=== PATIENT | female | born 1955 | race Caucasian/White ===

== ENCOUNTER → 2017-11-07 09:05 | Outpatient (CLI) | payer OTHER, MEDICAID, SELFPAY ==
--- NOTE | 2017-11-07 | DI.MG.S_ITS ---
BILATERAL DIGITAL SCREENING MAMMOGRAM 3D/2D WITH CAD: 11/07/2017 CLINICAL: Routine screening. Comparison is made to exams dated: 11/27/2015 mammogram, 10/09/2014 mammogram, and 11/22/2012 mammogram - [facility]. The tissue of both breasts is heterogeneously dense. This may lower the sensitivity of mammography. Current study was also evaluated with a Computer Aided Detection (CAD) system. No significant masses, calcifications, or other findings are seen in either breast. There has been no significant interval change. IMPRESSION: NEGATIVE There is no mammographic evidence of malignancy. A 1 year screening mammogram is recommended. This exam was interpreted at Station ID: [id number]. NOTE: For mammograms, a report in lay terms will be sent to the patient. Approximately 15% of breast malignancies will not be visualized mammographically. In the management of a palpable breast mass, a negative mammogram must not discourage biopsy of a clinically suspicious lesion. Electronically Signed By: Sharita dos santos/winston:11/07/2017 14:16:33 letter sent: Normal Exam ACR BI-RADS Category 1: Negative 3341F
== END ==
PROVIDERS: Visit Provider Student in an Organized Health Care Education/Training Program
DX: Z12.31 Encounter for screening mammogram for malignant neoplasm of breast (principal); M85.851 Other specified disorders of bone density and structure, right thigh
CPT/HCPCS: 77063; 77067; 77080

== ENCOUNTER 2018-10-09 07:22 | Day surgery (SDC) | payer OTHER, MEDICAID, SELFPAY ==
--- NOTE | 2018-10-09 | PATH_ITS ---
[facility] Accession Number: [id number] . 01 Material submitted: . PART A: colon - ASCENDING COLON BIOPSY PART B: colon - COLON BIOPSY AT 85 CM X3 . 02 Diagnosis: A. Ascending Colon, Biopsy: Tubular adenoma. . B. Colon, 85 cm x3, Biopsies: Tubular adenoma in five of multiple fragments. MRV/10/10/2018 . 02 Electronically signed: . Yanni Humphreys MD, Pathologist NPI- [id number] . 01 Gross description: . Part A: ASCENDING COLON BIOPSY: Received in formalin is 1 fragment(s) of roe, soft tissue measuring 0.6 x 0.2 x 0.2 cm which is entirely submitted and submitted entirely in 1 cassette(s) Part B: COLON BIOPSY AT 85 CM X3: Received in formalin are multiple fragment(s) of roe, soft tissue measuring 0.1 x 0.1 x 0.1 cm to 0.3 x 0.2 x 0.2 cm which is entirely submitted and submitted entirely in 1 cassette(s) /DMC /DMC . 02 Pathologist provided ICD-10: D12.2, D12.6 . 02 CPT . 801882, 748701 Performed at: 01 [facility] [address], [place], [place] [id number] MD Evans Reaves MD Phone: [phone] Performed at: 02 [facility] [address] [place], [place] [id number] MD Yanni Humphreys MD Phone: [phone]
[2018-10-09 07:50] VITALS: BMI 25.5
[2018-10-09 07:54] VITALS: BP 115/72; PULSE 63; RESP 15; TEMP 36.4; O2SAT 96
[2018-10-09] MEDS: SODIUM CHLORIDE 0.9% 1,000 ML 125 ML IV (08:07)
--- NOTE | 2018-10-09 09:01 | PM.PREOP ---
Pre-operative Note Interval Note History & Physical reviewed/Exam performed by Physician: Yes Changes to H&P: No ASA Class (for procedural sedation): I
[2018-10-09] MEDS: fentaNYL 250 MCG/5 ML INJ IV (09:22)
[2018-10-09] MEDS: MIDAZOLAM 5 MG/5 ML VIAL IV (09:23)
[2018-10-09 09:45] VITALS: BP 104/62; PULSE 58; RESP 12; TEMP 36.2; O2SAT 96
[2018-10-09 09:50] VITALS: BP 95/60; PULSE 58; RESP 12; O2SAT 96
--- NOTE | 2018-10-09 09:50 | P.OP.ENDO_ITS ---
Operative Date/Time/Diagnoses Date of procedure: 10/09/18 Time of procedure: 09:50 Pre-op diagnosis: Screening examination. This is her 1st colonoscopy. She is 62. Post-op diagnosis: same (Multiple small polyps. Sigmoid diverticulosis. Scarring on old internal hemorrhoids. No active inflammation.) Procedure & Clinicians Study performed: Colonoscopy with cold biopsy Same procedure as scheduled: Yes Indications: Screening Surgeon: Haseeb Méndez Procedure Notes SCOAP/Timeout: Performed Procedure in detail: The patient was placed in the left lateral decubitus position and underwent IV sedation directed by the surgeon consisting of fentanyl and Versed. Digital exam was unremarkable. The scope was inserted and advanced through the rectum into the sigmoid, descending, transverse, and ascending colon. I removed 1 small polyp in the ascending colon. I noted sigmoid diverticulosis. A stiffener had to be inserted and pressure applied in order to reach the ascending colon and cecum. The cecum was reached identified by the ileocecal valve and the appendiceal opening. The scope was gradually brought out. Three additional Polyps were found at 85 cm from the anal verge. These were biopsied and removed. The scope ultimately was retroflexed in the rectum. The appearance was remarkable for scarring on internal hemorrhoids. The hemorrhoids themselves were fairly minor. There was no active inflamma tion.. The scope was removed and the patient tolerated the procedure well. Prep was good. Scope withdrawal time: 10min(excludes biopsy time) Sedation minutes: 57 Findings: diverticulosis (SIGMOID), internal hemorrhoids and polyp Specimen(s): other (POLYPS) Complications: none Recommendations: Colonscopy in 5 years and Other recommendation (Consider Metamucil daily) Follow up: as needed Disposition: PACU
[2018-10-09 09:55] VITALS: BP 93/58; PULSE 53; RESP 10; O2SAT 95
[2018-10-09 10:01] VITALS: BP 106/60; PULSE 65; RESP 19; TEMP 36.1; O2SAT 98
[2018-10-09 10:27] VITALS: BP 106/58; PULSE 50; RESP 16; TEMP 36.6; O2SAT 99
== END 2018-10-09 10:33 | disposition home or self-care (01) ==
PROVIDERS: PCP Student in an Organized Health Care Education/Training Program; Visit Provider Specialist
PROC: 0DJD8ZZ Inspection of Lower Intestinal Tract, Via Natural or Artificial Opening Endoscopic (ICD-10-PCS; CPT 45378; principal; 2018-10-09 08:45)
DX: Z12.11 Encounter for screening for malignant neoplasm of colon (principal); K57.30 Diverticulosis of large intestine without perforation or abscess without bleeding; K64.8 Other hemorrhoids; D12.2 Benign neoplasm of ascending colon; D12.6 Benign neoplasm of colon, unspecified
CPT/HCPCS: 45380; 99152; 99153; J2250; J3010

== ENCOUNTER 2019-03-11 08:57 | Day surgery (SDC) | payer OTHER, MEDICAID, SELFPAY ==
[2019-03-05 07:48] VITALS: BMI 26.7
[2019-03-11] VITALS (11 sets, daily range): BP systolic 104–151; BP diastolic 58–79; PULSE 53–63; RESP 9–95; TEMP 36.1–36.8; O2SAT 13–99; BMI 27.1
[2019-03-11] MEDS: LACTATED RINGERS 1,000 ML 100 ML IV (09:47)
[2019-03-11] MEDS: CEFAZOLIN 2 GM/100 ML FROZ.PIGGY IV (10:40)
--- NOTE | 2019-03-11 10:43 | PM.HP.1 ---
History of Present Illness History of Present Illness Date Patient Seen: 03/11/19 Time Patient Seen: 10:44 Chief complaint: [id number] Narrative: The patient is here for pair of an umbilical hernia. Patient History Medical History Healthy female adult (Chronic) Surgical History H/O section (Resolved) Family & Social History Family History Mother Heart disease Stroke Cancer Father Heart disease Stroke Social History: household members significant other Tobacco & Substance use: Smoking Status Never smoker alcohol intake current Meds Home Medications and Allergies Home Medications Medication Instructions Recorded Confirmed Type acyclovir 200 mg PO TID PRN 03/11/19 03/11/19 History Allergies Allergy/AdvReac Type Severity Reaction Status Date / Time No Known Drug Allergies Allergy Verified 03/11/19 09:29 Review of Systems Review of Systems ROS Unobtainable: All systems reviewed & are unremarkable except as noted in HPI and below Exam Vital Signs (past 8 hours): - 03/11/19 09:45 Temperature 97.4 F L Pulse Rate 61 Respiratory Rate 15 Blood Pressure 126/77 Pulse Oximetry 94 Oxygen Delivery Method Room Air Narrative Exam Narrative: Pleasant cooperative patient no apparent distress. Lungs are clear to auscultation. No rales or rhonchi. Heart regular rate and rhythm no murmur gallop. Abdomen is soft nontender without mass. Has an obvious umbilical hernia. Patient is alert and oriented x3. Assessment & Plan Assessment & Plan narrative: Patient with an umbilical hernia for repair. I have discussed the procedure with her. Risks of bleeding infection recurrence discussed. She understands limitations. She appeared to understand and wished to proceed.
--- NOTE | 2019-03-11 10:45 | PM.PREOP ---
Pre-operative Note Interval Note History & Physical reviewed/Exam performed by Physician: Yes Changes to H&P: No
--- NOTE | 2019-03-11 11:03 | SUR.OPER ---
Supine on padded OR bed, head on pillow, arms secured on padded arm boards at <90 degrees abduction, legs uncrossed, safety belt at thigh, tape over blanket over lower legs.
[2019-03-11] MEDS: BUPIVACAINE 0.5% (PF) VIAL 30 ML INJ (11:18)
--- NOTE | 2019-03-11 11:37 | PM.OP.1 ---
Operative Date/Time/Diagnoses Date of procedure: 03/11/19 Time of procedure: 11:38 Pre-op diagnosis: umbilical hernia Post-op diagnosis: same Procedure & Clinicians Procedure: Primary repair Same procedure as scheduled: Yes Indications: Symptomatic hernia Surgeon: Haseeb Méndez Click Yes if Unassisted: Yes Anesthesia Type: General Operative Notes Findings: Small defect. Patient did not want mesh used in this repair. Closure Type: primary Specimen(s): none sent Prosthetic devices, grafts, tissues, transplants, or devices: None Estimated Blood Loss (mL): 5 Blood products transfused: none Procedure in detail: The patient is placed supine on the operating room table and underwent general LMA anesthesia. She was prepped and draped in the usual fashion. Curvilinear incision was made beneath her umbilicus after local anesthetic was infiltrated. This carried down level of fascia. The hernia sac was entered and contained fat. It was from the sac. The fascial edge was cleared. There was a large amount of fat and it was not able to be reduced so I resected a portion. The remainder was reduced. Fascial edge was cleared. Figure of 8 1. Ethibond sutures were placed in the fascia. This adequately closed the hernia. The umbilicus was tacked down to the fascia with interrupted 3 0 Vicryl. The subcu was closed with interrupted 3 0 Vicryl. The skin was closed with a running 4 0 Vicryl subcuticular stitch and Steri-Strips. Dressing was applied the patient was awakened extubated taken recovery area in good condition. Complications: none Post-operative Condition: stable Disposition: PACU Plan for aftercare: Follow-up in the office
[2019-03-11] MEDS: fentaNYL 100 MCG/2 ML INJ IV (12:16)
[2019-03-11] MEDS: HYDROMORPHONE 2 MG INJ IV (12:17)
--- NOTE | 2019-03-11 12:24 | SUR.PHASEI ---
Medicated for c\o 11/07 pain. Denies nausea. Carley TRAN.
[2019-03-11] MEDS: ONDANSETRON 4 MG/2 ML INJ IV (12:29)
--- NOTE | 2019-03-11 12:32 | SUR.PHASEI ---
Patient c/o feeling dizzy and may get nauseated. Gave zofran.
[2019-03-11] MEDS: HYDROCODONE/ACET 5/325 TABLET 1 TAB PO (13:29)
== END 2019-03-11 14:09 | disposition home or self-care (01) ==
PROVIDERS: Family Provider Student in an Organized Health Care Education/Training Program; PCP Student in an Organized Health Care Education/Training Program; Visit Provider Specialist
PROC: (CPT 49585; principal; 2019-03-11 10:15)
DX: K42.9 Umbilical hernia without obstruction or gangrene (principal)
CPT/HCPCS: 49585; 94762; J0690; J1100; J1170; J2250; J2405; J3010

== ENCOUNTER → 2020-02-22 10:44 | Outpatient (CLI) | payer MEDICARE, OTHER, MEDICAID, SELFPAY ==
--- NOTE | 2020-02-22 | DI.MG.S_ITS ---
BILATERAL DIGITAL SCREENING MAMMOGRAM 3D/2D WITH CAD: 02/22/2020 CLINICAL: Routine screening. Comparison is made to exams dated: 11/07/2017 mammogram, 11/27/2015 mammogram, and 10/09/2014 mammogram - [facility]. The tissue of both breasts is heterogeneously dense. This may lower the sensitivity of mammography. Current study was also evaluated with a Computer Aided Detection (CAD) system. No significant masses, calcifications, or other findings are seen in either breast. There has been no significant interval change. IMPRESSION: NEGATIVE There is no mammographic evidence of malignancy. A 1 year screening mammogram is recommended. This exam was interpreted at Station ID: [id number]. NOTE: For mammograms, a report in lay terms will be sent to the patient. Approximately 15% of breast malignancies will not be visualized mammographically. In the management of a palpable breast mass, a negative mammogram must not discourage biopsy of a clinically suspicious lesion. Electronically Signed By: Gus keane/winston:02/24/2020 08:51:50 letter sent: Normal Exam ACR BI-RADS Category 1: Negative 3341F
== END ==
PROVIDERS: Family Provider Student in an Organized Health Care Education/Training Program; PCP Student in an Organized Health Care Education/Training Program; Referring Provider Student in an Organized Health Care Education/Training Program; Visit Provider Student in an Organized Health Care Education/Training Program
DX: Z12.31 Encounter for screening mammogram for malignant neoplasm of breast (principal)
CPT/HCPCS: 77063; 77067

== ENCOUNTER → 2020-10-08 20:09 | Outpatient (ROUT) | payer MEDICARE, OTHER, MEDICAID, SELFPAY ==
[2020-10-08 20:17] LABS: Add Manual Diff / Slide Review NO; Basophils Absolute Auto 0 /uL (0-100); Basophils Percent Auto 0.5 % (0-2); Eosinophils Absolute Auto 200 /uL (0-450); Eosinophils Percent Auto 2.2 % (2-4); Hematocrit 42.8 % (36-46); Lymphocytes Absolute Auto 3000 /uL (1100-4500); Lymphocytes Percent Auto 30.4 % (25-40); Mean Corpuscular HGB Conc 32.8 % (30-36); Mean Corpuscular Hemoglobin 30.4 PG (26-34); Mean Corpuscular Volume 92.9 fL (80-100); Monocytes Absolute Auto 800 /uL (0-900); Monocytes Percent Auto 7.5 % (3-14); Neutrophils Absolute Auto 5900 /uL (1500-7000); Neutrophils Percent Auto 59.4 % (50-75); Platelet Count 411 X10^3/uL (150-400); Red Blood Cell Count 4.61 X10^6/uL (4.0-5.2); Red Cell Distribution Width 13.3 % (11.6-14.8)
[2020-10-08 20:35] LABS: Alanine Aminotransferase 26 IU/L (<35); Albumin 4.4 g/dL (3.5-5.0); Albumin Globulin Ratio 1.4 (1.0-2.8); Alkaline Phosphatase 104 U/L (38-126); Aspartate Aminotransferase 32 IU/L (14-36); BUN Creatinine Ratio 16.2 (6-22); Bilirubin Total 0.8 mg/dL (0.2-1.3); Blood Urea Nitrogen 12 mg/dL (7-17); Carbon Dioxide 26 mmol/L (22-32); Chloride 103 mmol/L (98-107); Estimated Glomerular Filt Rate > 60.0 mL/min (>60); Globulin 3.1 g/dL (1.7-4.1); Glucose 111 mg/dL (80-110); HEMOLYSIS < 15 (0-50); Lipase 89 U/L (23-300); Potassium 4.5 mmol/L (3.4-5.1); Sodium 137 mmol/L (137-145); Total Protein 7.5 g/dL (6.3-8.2)
[2020-10-08 21:03] LABS: TSH w/ Reflex to FT4 1.33 uIU/mL (0.47-4.68)
== END ==
PROVIDERS: Family Provider Student in an Organized Health Care Education/Training Program; PCP Student in an Organized Health Care Education/Training Program; Visit Provider Student in an Organized Health Care Education/Training Program
DX: R53.83 Other fatigue (principal); R10.9 Unspecified abdominal pain; R51.9 Headache, unspecified; R61 Generalized hyperhidrosis
CPT/HCPCS: 80053; 83690; 84443; 85025

== ENCOUNTER → 2020-10-20 08:49 | Outpatient (CLI) | payer MEDICARE, OTHER, MEDICAID, SELFPAY ==
--- NOTE | 2020-10-20 | DI.CT.S_ITS ---
PROCEDURE: CT ABDOMEN PELVIS W CON INDICATIONS: ABD PAIN TECHNIQUE: After the administration of oral and intravenous contrast, axial sections were acquired from the lung bases to the pubic symphysis. Coronal and sagittal reformats were performed. For radiation dose reduction, the following was used: automated exposure control, adjustment of mA and/or kV according to patient size. COMPARISON:None. FINDINGS: Image quality: Excellent. Lung bases: Unremarkable. Heart: No significant findings. ABDOMEN: Liver: Unremarkable. Gallbladder: Is grossly unremarkable Biliary ducts: Unremarkable. Pancreas: Unremarkable. Spleen: Unremarkable. Adrenal Glands: Unremarkable. Kidneys and Ureters: Unremarkable. Stomach and Bowel: Stomach, small bowel loops, and colon are unremarkable. Normal appendix. Peritoneum: No abnormal intraperitoneal fluid. No free air. Ventral Wall: No hernia. Abdominal Nodes: No retroperitoneal or mesenteric adenopathy by size criteria. Vessels: Aorta and inferior vena cava are normal in size. PELVIS: Pelvic Organs: Unremarkable. Bladder: Unremarkable. Pelvic Nodes: No enlarged lymph nodes. Miscellaneous: No inguinal hernias are seen. Bones: Unremarkable. IMPRESSION: 1. No acute process. 2. Normal appendix. Dictated by: Alber Oconnell M.D. on 10/20/2020 at 10:22 Approved by: Alber Oconnell M.D. on 10/20/2020 at 10:23
== END ==
PROVIDERS: Family Provider Student in an Organized Health Care Education/Training Program; PCP Student in an Organized Health Care Education/Training Program; Referring Provider Student in an Organized Health Care Education/Training Program; Visit Provider Student in an Organized Health Care Education/Training Program
DX: R10.9 Unspecified abdominal pain (principal); R61 Generalized hyperhidrosis
CPT/HCPCS: 74177; Q9967

== ENCOUNTER → 2022-10-12 10:57 | Outpatient (CLI) | payer OTHER, SELFPAY ==
--- NOTE | 2022-10-12 | DI.MG.S_ITS ---
BILATERAL DIGITAL SCREENING MAMMOGRAM 3D/2D WITH CAD: 10/12/2022 CLINICAL: Routine screening. Comparison is made to exams dated: 02/22/2020 mammogram, 11/07/2017 mammogram, and 11/27/2015 mammogram - [facility]. Both breasts are heterogeneously dense, which may obscure small masses (category c / 51-75% glandular tissue). Current study was also evaluated with a Computer Aided Detection (CAD) system. No significant masses, calcifications, or other findings are seen in either breast. There has been no significant interval change. IMPRESSION: NEGATIVE There is no mammographic evidence of malignancy. A 1 year screening mammogram is recommended. Based on the Tyrer Cuzick model (a risk assessment model) the patient's lifetime risk is 7.2% and her 10 year risk is 3.8%. According to the ACR, ACS, and NCCN guidelines, an annual breast MRI exam along with mammogram is recommended if the patient's lifetime risk is 20% or greater. This exam was interpreted at Station ID: [id number]. NOTE: For mammograms, a report in lay terms will be sent to the patient. Approximately 15% of breast malignancies will not be visualized mammographically. In the management of a palpable breast mass, a negative mammogram must not discourage biopsy of a clinically suspicious lesion. Electronically Signed By: Gus keane/winston:10/12/2022 14:25:07 letter sent: Normal Exam ACR BI-RADS Category 1: Negative 3341F
== END ==
PROVIDERS: Family Provider Student in an Organized Health Care Education/Training Program; PCP Family Medicine; Referring Provider Family Medicine; Visit Provider Family Medicine
DX: Z12.31 Encounter for screening mammogram for malignant neoplasm of breast (principal)
CPT/HCPCS: 77063; 77067

== ENCOUNTER → 2023-11-10 11:32 | Outpatient (CLI) | payer OTHER, SELFPAY ==
--- NOTE | 2023-11-10 11:33 | DI.MG.S_ITS ---
BILATERAL DIGITAL SCREENING MAMMOGRAM 3D/2D WITH CAD: 11/10/2023 CLINICAL: Routine screening. Comparison is made to exams dated: 10/12/2022 mammogram, 02/22/2020 mammogram, and 11/07/2017 mammogram - [facility]. Both breasts are heterogeneously dense, which may obscure small masses (category c / 51-75% glandular tissue). Current study was also evaluated with a Computer Aided Detection (CAD) system. No significant masses, calcifications, or other findings are seen in either breast. There has been no significant interval change. IMPRESSION: NEGATIVE There is no mammographic evidence of malignancy. A 1 year screening mammogram is recommended. Based on the Tyrer Cuzick model (a risk assessment model) the patient's lifetime risk is 6.9% and her 10 year risk is 3.8%. According to the ACR, ACS, and NCCN guidelines, an annual breast MRI exam along with mammogram is recommended if the patient's lifetime risk is 20% or greater. This exam was interpreted at Station ID: [id number]. NOTE: For mammograms, a report in lay terms will be sent to the patient. Approximately 15% of breast malignancies will not be visualized mammographically. In the management of a palpable breast mass, a negative mammogram must not discourage biopsy of a clinically suspicious lesion. Electronically Signed By: Gus keane/winston:11/10/2023 12:29:18 letter sent: Normal Exam ACR BI-RADS Category 1: Negative 3341F
== END ==
LOC: MAMMO 11:33
PROVIDERS: Family Provider Student in an Organized Health Care Education/Training Program; PCP Family Medicine; Referring Provider Family Medicine; Visit Provider Family Medicine
DX: Z12.31 Encounter for screening mammogram for malignant neoplasm of breast (principal); R92.333 Mammographic heterogeneous density, bilateral breasts
CPT/HCPCS: 77063; 77067

== ENCOUNTER → 2024-02-07 14:14 | Outpatient (CLI) | payer OTHER, SELFPAY ==
[2024-02-07 16:40] LABS: Alanine Aminotransferase 21 IU/L (<35); Albumin 4.4 g/dL (3.5-5.0); Albumin Globulin Ratio 1.6 (1.0-2.8); Alkaline Phosphatase 87 U/L (38-126); Aspartate Aminotransferase 24 IU/L (14-36); BUN Creatinine Ratio 18.2 (6-22); Bilirubin Total 0.7 mg/dL (0.2-1.3); Blood Urea Nitrogen 16 mg/dL (7-17); Calcium 9.6 mg/dL (8.4-10.2); Carbon Dioxide 26 mmol/L (22-32); Chloride 106 mmol/L (98-107); Cholesterol 243 mg/dL (140-199); Estimated Glomerular Filt Rate > 60 mL/min (>60); Globulin 2.7 g/dL (1.7-4.1); Glucose 85 mg/dL (80-110); HDL Cholesterol 62 mg/dL (40-60); HEMOLYSIS < 15 (0-50); LDL Cholesterol Calculated 138 mg/dL (<100); Potassium 4.2 mmol/L (3.4-5.1); Sodium 139 mmol/L (137-145); Total Protein 7.1 g/dL (6.3-8.2); Triglycerides 214 mg/dL (35-150)
== END ==
PROVIDERS: Family Provider Student in an Organized Health Care Education/Training Program; PCP Family Medicine; Referring Provider Family Medicine; Visit Provider Family Medicine
DX: Z13.220 Encounter for screening for lipoid disorders (principal); Z13.1 Encounter for screening for diabetes mellitus
CPT/HCPCS: 36415; 80053; 80061

== ENCOUNTER → 2024-12-02 15:50 | Outpatient (CLI) | payer MEDICARE, SELFPAY ==
--- NOTE | 2024-12-02 15:51 | DI.MG.S_ITS ---
MM screening mammo BI: 12/02/2024. BI-RADS: 1 CLINICAL: 69-year old female for bilateral screening mammogram. Tyrer-Cuzick lifetime risk of 6.1%. No personal or first-degree family history of breast cancer. PRIOR EXAMS 11/10/2023, 10/12/2022, 02/22/2020, 11/07/2017, MAMMOGRAPHY TECHNIQUE: 2D and 3D (tomosynthesis) digital mammographic views obtained, with additional images as needed for full coverage. Current study was also evaluated with a Computer Aided Detection (CAD) system. DENSITY C. The breasts are heterogeneously dense, which may obscure small masses. MAMMOGRAPHY FINDINGS Bilateral: No suspicious mass, asymmetry, microcalcification, or other abnormality seen. No significant change from comparison. IMPRESSION: * No evidence of malignancy. RECOMMENDATIONS Bilateral * Annual screening mammography. OVERALL ASSESSMENT CATEGORY BI-RADS-1: Negative. The [employer] recommends annual screening mammography beginning at age 40 for women with average risk of breast cancer. ELECTRONICALLY SIGNED: Mitzi Huerta M.D. on 12/03/2024 at 08:49:11 AM PT Interpreting Station ID: [id number]
== END ==
LOC: MAMMO 15:50
PROVIDERS: Family Provider Student in an Organized Health Care Education/Training Program; PCP Family Medicine; Referring Provider Family Medicine; Visit Provider Family Medicine
DX: Z12.31 Encounter for screening mammogram for malignant neoplasm of breast (principal)
CPT/HCPCS: 77063; 77067